=== PATIENT | male | born 1945 | race Two or more races ===

== ENCOUNTER 2016-07-27 10:49 | Observation (INO) | payer MEDICARE ==
[~2016-07-27] VITALS: Ht 190.5 cm; Wt 83.4 kg
[2016-07-27] MEDS ORDERED: ASPIRIN 81 MG CHEW TAB ONE (11:09)
[2016-07-27] MEDS ORDERED: ALU/MAG/SIM 30 ML UDC PO PRN (13:30)
[2016-07-27] MEDS ORDERED: LORAZEPAM 0.5 MG TAB PO PRN (13:30)
[2016-07-27] MEDS ORDERED: SALINE FLUSH 10 ML FLUSH PRN (13:30)
[2016-07-27] MEDS ORDERED: TEMAZEPAM 7.5 MG CAP PO PRN (13:30)
[2016-07-27] MEDS ORDERED: ONDANSETRON 4 MG VIAL IV PRN (13:30)
[2016-07-27] MEDS ORDERED: TRAMADOL 50 MG TAB PO PRN (13:30)
[2016-07-27] MEDS ORDERED: DOCUSATE SOD 100 MG CAP PO PRN (13:30)
[2016-07-27] MEDS ORDERED: MORPHINE 2 MG/ML SYR IV PRN (13:30)
[2016-07-27] MEDS ORDERED: ACETAMINOPHEN 325 MG TAB PO PRN (13:30)
[2016-07-27] MEDS ORDERED: NITROGLYCERIN SL 0.4 MG TAB SL PRN (13:30)
[2016-07-27 15:00] VITALS: BP_SYST 92; RESP 18; TEMP 96.7; Ht 190.5 cm; Wt 83.4 kg
[2016-07-27] MEDS ORDERED: PHENAZOPYRIDINE 100 MG TAB PO PRN (17:05)
[2016-07-27] MEDS ORDERED: Furosemide 20 MG TAB PO SCH (17:48)
[2016-07-27] MEDS: AMIODARONE 200 MG TAB PO SCH (19:04)
[2016-07-27] MEDS: Finasteride 5 MG TAB PO SCH (19:04)
[2016-07-27] MEDS: ASPIRIN EC 81 MG TAB PO SCH (19:04)
[2016-07-27] MEDS: SPIRONOLACTONE 25 MG TAB PO SCH (19:05)
[2016-07-27 20:03] VITALS: BP_SYST 94; RESP 18; TEMP 97.9
[2016-07-27] MEDS: CYPROHEPTADINE 4 MG TAB PO SCH (20:37)
[2016-07-27] MEDS: SALINE FLUSH 10 ML FLUSH SCH (20:40)
[2016-07-27] MEDS ORDERED: MORPHINE 2 MG/ML PO SCH (21:00)
[2016-07-27] MEDS ORDERED: CYCLOBENZAPRINE 10 MG TAB PO SCH (21:00)
[2016-07-27] MEDS ORDERED: SERTRALINE 25 MG TAB PO SCH (21:00)
[2016-07-27] MEDS ORDERED: Atorvastatin 10 MG TAB PO SCH ×2 (21:00)
[2016-07-27] MEDS ORDERED: LISINOPRIL 10 MG TAB PO SCH (21:00)
[2016-07-27] MEDS: Carvedilol 3.125 MG TAB PO SCH (21:00)
[2016-07-27] MEDS ORDERED: LEVOFLOXACIN 500 MG TAB PO SCH (21:00)
[2016-07-28 00:04] VITALS: BP_SYST 90; RESP 16; TEMP 98.3
[2016-07-28 03:26] VITALS: BP_SYST 116; RESP 16; TEMP 97.9
[2016-07-28] MEDS ORDERED: SODIUM CHLORIDE 0.9% FLUSH BAG 500 ML IV SCH (06:00)
[2016-07-28 07:22] VITALS: BP_SYST 90; RESP 16; TEMP 98.4
[2016-07-28] MEDS: SPIRONOLACTONE 25 MG TAB PO SCH (08:55)
[2016-07-28] MEDS: Carvedilol 3.125 MG TAB PO SCH (08:55)
[2016-07-28] MEDS: Finasteride 5 MG TAB PO SCH (09:29)
[2016-07-28] MEDS: ASPIRIN EC 81 MG TAB PO SCH (09:29)
[2016-07-28] MEDS: AMIODARONE 200 MG TAB PO SCH (09:29)
[2016-07-28] MEDS: CYPROHEPTADINE 4 MG TAB PO SCH ×2 (09:29→16:49)
[2016-07-28] MEDS: SALINE FLUSH 10 ML FLUSH SCH (09:30)
[2016-07-28 10:56] VITALS: BP_SYST 112; RESP 18; TEMP 97.7
[2016-07-28] MEDS ORDERED: LEXISCAN 0.4 MG/5 ML SYRINGE IV ONE (12:27)
[2016-07-28 15:18] VITALS: BP_SYST 110; RESP 16; TEMP 97.3
[2016-07-28 17:48] VITALS: BP_SYST 110; RESP 16; TEMP 97.3
== END 2016-07-28 17:24 | disposition home or self-care (01) ==
LOC: ENRESERVDT → ENRESERVTM → ER 10:49 → EMR 13:30 → ENPENDDIS 13:30 → 4THE 15:05
PROVIDERS: ADMIT Internal Medicine Cardiovascular Disease; ATTEND Internal Medicine Cardiovascular Disease
DX: R07.9 Chest pain, unspecified (principal); I25.10 Atherosclerotic heart disease of native coronary artery without angina pectoris; I10 Essential (primary) hypertension; Z95.5 Presence of coronary angioplasty implant and graft; J44.9 Chronic obstructive pulmonary disease, unspecified; N40.0 Benign prostatic hyperplasia without lower urinary tract symptoms; G89.4 Chronic pain syndrome; Z95.810 Presence of automatic (implantable) cardiac defibrillator; E78.5 Hyperlipidemia, unspecified; Z79.82 Long term (current) use of aspirin
CPT/HCPCS: 71010; 78452; 80053; 80061; 82550; 82553; 83735; 83880; 84484; 85025; 85610; 85730; 93005; 93017; 97799; 99284; A9500; G0378; J2785; 94799

== ENCOUNTER 2016-08-06 02:20 | Inpatient (IN) | payer MEDICARE ==
[~2016-08-06] VITALS: Ht 190.5 cm; Wt 87.2 kg
[2016-08-06] MEDS ORDERED: OPTIRAY 350 100 ML VIAL HMH IV ONE (02:21)
[2016-08-06] MEDS ORDERED: DILAUDID 1 MG/ML AMP ONE (02:41)
[2016-08-06] MEDS ORDERED: ONDANSETRON 4 MG VIAL ONE (02:41)
[2016-08-06] MEDS ORDERED: SODIUM CHLORIDE 0.9% 1,000 ML ONE (02:41)
[2016-08-06] MEDS ORDERED: PANTOPRAZOLE 40 MG VIAL IV ONE (02:42)
[2016-08-06] MEDS ORDERED: BISACODYL 10 MG SUPP RECTAL PRN (05:45)
[2016-08-06] MEDS ORDERED: MAG HYDROX 30 ML UDC PO PRN (05:45)
[2016-08-06] MEDS ORDERED: SALINE FLUSH 10 ML FLUSH PRN (05:45)
[2016-08-06] MEDS ORDERED: ALU/MAG/SIM 30 ML UDC PO PRN (05:45)
[2016-08-06] MEDS: SODIUM CHLORIDE 0.9% FLUSH BAG 500 ML IV SCH (06:00)
[2016-08-06] MEDS ORDERED: PANTOPRAZOLE 80 MG in SODIUM CHLORIDE 0.9% 250 ML IV SCH ×2 (06:45→08:00)
[2016-08-06 07:42] VITALS: BP_SYST 124; RESP 18; TEMP 97.5
[2016-08-06 08:42] VITALS: Ht 190.5 cm; Wt 87.2 kg
[2016-08-06] MEDS ORDERED: FENTANYL 100 MCG/2 ML AMP IV ONE (10:07)
[2016-08-06] MEDS ORDERED: PROPOFOL 50ML PER ML IV ONE (10:07)
[2016-08-06] MEDS: LEVOFLOXACIN 750 MG/150 ML 150 ML IV SCH (10:46)
[2016-08-06] MEDS: SALINE FLUSH 10 ML FLUSH SCH ×2 (10:47→19:31)
[2016-08-06] MEDS: FAMOTIDINE 20 MG INJ IV SCH ×2 (10:47→20:39)
[2016-08-06 11:25] VITALS: BP_SYST 118; RESP 16; TEMP 97.7
[2016-08-06] MEDS ORDERED: [UNRECOGNIZED DRUG - REMARK] XX SCH (11:32)
[2016-08-06] MEDS ORDERED: MORPHINE 2 MG/ML PO PRN (12:35)
[2016-08-06] MEDS: MORPHINE ER 30 MG TAB PO SCH ×2 (13:26→20:22)
[2016-08-06] MEDS: CYPROHEPTADINE 4 MG TAB PO SCH ×2 (15:56→20:21)
[2016-08-06 16:53] VITALS: BP_SYST 132; RESP 21; TEMP 97.9
[2016-08-06] MEDS: DILAUDID 1 MG/ML AMP IV PRN (17:40)
[2016-08-06 19:44] VITALS: BP_SYST 142; RESP 18; TEMP 97.7
[2016-08-06] MEDS: SERTRALINE 25 MG TAB PO SCH (20:21)
[2016-08-06] MEDS: Atorvastatin 10 MG TAB PO SCH (20:22)
[2016-08-06] MEDS: Carvedilol 3.125 MG TAB PO SCH (20:22)
[2016-08-06] MEDS: LISINOPRIL 5 MG TAB PO SCH (20:25)
[2016-08-06] MEDS: SODIUM CHLORIDE 0.9% 1,000 ML IV SCH (20:26)
[2016-08-06] MEDS ORDERED: MISSING DOSE XX ONE ×2 (20:35→23:20)
[2016-08-06] MEDS: PANTOPRAZOLE 40 MG VIAL IV SCH (20:39)
[2016-08-06] MEDS ORDERED: MORPHINE 2 MG/ML PO SCH (21:00)
[2016-08-06] MEDS: BISACODYL EC 5 MG TAB PO PRN (22:38)
[2016-08-06 23:22] VITALS: BP_SYST 109; RESP 18; TEMP 98.3
[2016-08-07 03:21] VITALS: BP_SYST 142; RESP 18; TEMP 97.7
[2016-08-07] MEDS: SODIUM CHLORIDE 0.9% FLUSH BAG 500 ML IV SCH (06:00)
[2016-08-07 07:00] VITALS: BP_SYST 136; RESP 15; TEMP 97.8
[2016-08-07] MEDS: SALINE FLUSH 10 ML FLUSH SCH ×2 (08:00→19:27)
[2016-08-07] MEDS: PANTOPRAZOLE 40 MG VIAL IV SCH ×2 (08:02→20:08)
[2016-08-07] MEDS: BISACODYL EC 5 MG TAB PO PRN (08:04)
[2016-08-07] MEDS: Finasteride 5 MG TAB PO SCH (08:05)
[2016-08-07] MEDS: Carvedilol 3.125 MG TAB PO SCH ×2 (08:05→20:11)
[2016-08-07] MEDS: FAMOTIDINE 20 MG INJ IV SCH ×2 (08:05→20:08)
[2016-08-07] MEDS: CYPROHEPTADINE 4 MG TAB PO SCH ×3 (08:05→20:11)
[2016-08-07] MEDS: AMIODARONE 200 MG TAB PO SCH (08:05)
[2016-08-07] MEDS: MORPHINE ER 30 MG TAB PO SCH ×2 (08:07→20:11)
[2016-08-07] MEDS: LEVOFLOXACIN 750 MG/150 ML 150 ML IV SCH (08:20)
[2016-08-07] MEDS ORDERED: ASPIRIN 81 MG CHEW TAB PO SCH (09:00)
[2016-08-07] MEDS: SODIUM CHLORIDE 0.9% 1,000 ML IV SCH ×2 (10:07→20:09)
[2016-08-07 11:24] VITALS: BP_SYST 138; RESP 15; TEMP 97.9
[2016-08-07 15:45] VITALS: BP_SYST 117; RESP 15; TEMP 97.9
[2016-08-07] MEDS: DILAUDID 1 MG/ML AMP IV PRN ×2 (16:18→22:55)
[2016-08-07 19:38] VITALS: BP_SYST 118; RESP 16; TEMP 98.7
[2016-08-07] MEDS: Atorvastatin 10 MG TAB PO SCH (20:11)
[2016-08-07] MEDS: SERTRALINE 25 MG TAB PO SCH (20:11)
[2016-08-07] MEDS: LISINOPRIL 5 MG TAB PO SCH (20:12)
[2016-08-07 22:59] VITALS: BP_SYST 120; RESP 16; TEMP 97.8
[2016-08-08] VITALS (16 sets, daily range): BP systolic 84–102; RESP 12–18; TEMP 96.1–98.6
[2016-08-08] MEDS: SODIUM CHLORIDE 0.9% FLUSH BAG 500 ML IV SCH (06:00)
[2016-08-08] MEDS: PANTOPRAZOLE 40 MG VIAL IV SCH ×2 (08:00→21:19)
[2016-08-08] MEDS: FAMOTIDINE 20 MG INJ IV SCH ×2 (08:00→19:52)
[2016-08-08] MEDS: SALINE FLUSH 10 ML FLUSH SCH ×2 (08:00→19:51)
[2016-08-08] MEDS: Finasteride 5 MG TAB PO SCH (09:00)
[2016-08-08] MEDS: Carvedilol 3.125 MG TAB PO SCH ×2 (09:00→21:00)
[2016-08-08] MEDS: MORPHINE ER 30 MG TAB PO SCH ×2 (09:00→21:20)
[2016-08-08] MEDS: AMIODARONE 200 MG TAB PO SCH (09:00)
[2016-08-08] MEDS: CYPROHEPTADINE 4 MG TAB PO SCH ×3 (09:00→21:19)
[2016-08-08] MEDS: LEVOFLOXACIN 750 MG/150 ML 150 ML IV SCH (09:10)
[2016-08-08] MEDS ORDERED: FENTANYL 100 MCG/2 ML AMP IV ONE (10:45)
[2016-08-08] MEDS ORDERED: MIDAZOLAM 2 MG/2 ML INJ IV ONE (10:45)
[2016-08-08] MEDS ORDERED: FENTANYL 100 MCG/2 ML AMP ONE (13:02)
[2016-08-08] MEDS ORDERED: MIDAZOLAM 2 MG/2 ML INJ ONE (13:02)
[2016-08-08] MEDS ORDERED: SOD BICARB 8.4% VIAL 50 ML IV ONE (13:47)
[2016-08-08] MEDS ORDERED: LIDOCAINE 2% 20 ML INTRADERM ONE (13:47)
[2016-08-08] MEDS: SODIUM CHLORIDE 0.9% 1,000 ML IV SCH ×2 (15:02→20:07)
[2016-08-08] MEDS: DILAUDID 1 MG/ML AMP IV PRN (15:03)
[2016-08-08] MEDS ORDERED: DILAUDID 1 MG/ML AMP IV PRN (16:10)
[2016-08-08] MEDS ORDERED: MORPHINE 4 MG/ML SYR IV PRN (16:10)
[2016-08-08] MEDS ORDERED: MORPHINE 2 MG/ML SYR IV PRN (16:10)
[2016-08-08] MEDS ORDERED: OXYCODONE 5 MG TAB PO PRN (16:10)
[2016-08-08] MEDS ORDERED: ONDANSETRON 4 MG VIAL IV PUSH PRN (16:40)
[2016-08-08] MEDS ORDERED: PHENAZOPYRIDINE 100 MG TAB PO ONE (16:40)
[2016-08-08] MEDS ORDERED: MISSING DOSE XX ONE (20:15)
[2016-08-08] MEDS: LISINOPRIL 5 MG TAB PO SCH (21:00)
[2016-08-08] MEDS: Atorvastatin 10 MG TAB PO SCH (21:19)
[2016-08-08] MEDS: SERTRALINE 25 MG TAB PO SCH (21:19)
[2016-08-09 04:00] VITALS: BP_SYST 92; RESP 20; TEMP 98.3
[2016-08-09] MEDS: SODIUM CHLORIDE 0.9% FLUSH BAG 500 ML IV SCH (05:23)
[2016-08-09 07:18] VITALS: BP_SYST 102; RESP 18; TEMP 97.9
[2016-08-09] MEDS: FAMOTIDINE 20 MG INJ IV SCH (08:21)
[2016-08-09] MEDS: LEVOFLOXACIN 750 MG/150 ML 150 ML IV SCH (08:21)
[2016-08-09] MEDS: SALINE FLUSH 10 ML FLUSH SCH (08:21)
[2016-08-09] MEDS: CYPROHEPTADINE 4 MG TAB PO SCH ×2 (08:21→16:00)
[2016-08-09] MEDS: Finasteride 5 MG TAB PO SCH (08:21)
[2016-08-09] MEDS: MORPHINE ER 30 MG TAB PO SCH (08:26)
[2016-08-09] MEDS: SODIUM CHLORIDE 0.9% 1,000 ML IV SCH (08:39)
[2016-08-09] MEDS: Carvedilol 3.125 MG TAB PO SCH (09:00)
[2016-08-09] MEDS: AMIODARONE 200 MG TAB PO SCH (09:00)
[2016-08-09] MEDS: PANTOPRAZOLE 40 MG VIAL IV SCH (09:42)
[2016-08-09 11:15] VITALS: BP_SYST 106; RESP 18; TEMP 96.9
[2016-08-09 13:34] VITALS: BP_SYST 106; RESP 18; TEMP 96.9
[2016-08-09] MEDS ORDERED: PANTOPRAZOLE 40 MG TAB PO SCH (16:00)
== END 2016-08-09 14:14 | disposition home or self-care (01) | DRG 723 ==
LOC: ENRESERVDT → ENRESERVTM → ER 02:20 → ENPENDDIS 05:41 → EMR 05:41 → 5THE 07:24
PROVIDERS: ADMIT Internal Medicine; ATTEND Internal Medicine
PROC: 0T767DZ Dilation of Right Ureter with Intraluminal Device, Via Natural or Artificial Opening (ICD-10-PCS; 2016-08-08)
PROC: 0T9B30Z Drainage of Bladder with Drainage Device, Percutaneous Approach (ICD-10-PCS; principal; 2016-08-08 16:00)
DX: C61 Malignant neoplasm of prostate (principal); C79.51 Secondary malignant neoplasm of bone; N17.9 Acute kidney failure, unspecified; I13.0 Hypertensive heart and chronic kidney disease with heart failure and stage 1 through stage 4 chronic kidney disease, or unspecified chronic kidney disease; N13.30 Unspecified hydronephrosis; K92.2 Gastrointestinal hemorrhage, unspecified; I50.20 Unspecified systolic (congestive) heart failure; N39.0 Urinary tract infection, site not specified; I25.10 Atherosclerotic heart disease of native coronary artery without angina pectoris; Z95.5 Presence of coronary angioplasty implant and graft; J44.9 Chronic obstructive pulmonary disease, unspecified; I25.5 Ischemic cardiomyopathy; N18.9 Chronic kidney disease, unspecified; E78.5 Hyperlipidemia, unspecified; B95.2 Enterococcus as the cause of diseases classified elsewhere; Z95.0 Presence of cardiac pacemaker; Z92.21 Personal history of antineoplastic chemotherapy; Z92.3 Personal history of irradiation
CPT/HCPCS: 36415; 50432; 74000; 74177; 76000; 80048; 80053; 81001; 82553; 83735; 84100; 84311; 84484; 85025; 85610; 85730; 87077; 87088; 87186; 94664; 94799; 96361; 96374; 96375; 99223; 99232; 99233; 99238